=== PATIENT | female | born 2000 | race African-American/Black ===

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

== ENCOUNTER 2022-10-10 13:02 | Emergency (ER) | payer OTHER ==
--- OUTSIDE RECORDS SUMMARY | 2022-10-10 13:07 | XMS REPORT | Continuity of Care Document ---
:2000 Author Organization [facility] t Address [address] [place] [address] Care Team Providers Name Role Phone ARELIS GODDARD Primary Care Physician Unavailable RADIOLOGY Attending Clinician Unavailable Radiology Attending Clinician Unavailable CHRISTINE HUI Attending Clinician Unavailable Christine Villarreal Attending Clinician UNKNOWN, ATTENDING Attending Clinician Unavailable Arelis Goddard Attending Clinician Nurse, Adc Pob Immunization Attending Clinician Unavailable Zechariah Vaughn DO Attending Clinician ZECHARIAH VAUGHN Attending Clinician Unavailable MONDAYDIANA M.D. Attending Clinician Unavailable MONDAYDIANA Attending Clinician Unavailable MondayDiana Attending Clinician MIGUEL GARCIA Attending Clinician Unavailable CLINTON CARDONA Admitting Clinician Unavailable CHRISTINE HUI Admitting Clinician Unavailable MONDAYDIANA Admitting Clinician Unavailable MondayDiana Admitting Clinician Payers Payer Name Policy Type Policy Number Effective Date Expiration Date Aaron HAMMER II [id number] 2020 00:00:00 [place] [id number] 2022 00:00:00 [facility] [id number] 2017 MEDICAID 00:00:00 Problems Condition Condition Condition Status Onset Resolution Last Treating Co mments Source Name Details Category Date Date Treatment Clinician Date CONVULSION CONVULSIO Diagnosis Active 2021-01-28 Shakira N Active 12-03 05:07:00 l 12/03/2020 00:00: Ned pittman [address] No known No known Disease Unive rs active active ity of problems problems [facility] Convulsion Convulsion Problem Active U T s, s, Physici unspecifie unspecifie an s d d convulsion convulsion type type 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, seizures, not not intractabl intractabl e, without e, without status status epilepticu epilepticu s s 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 an s ic seizure ic seizure Allergies, Adverse Reactions, Alerts Allergy Allergy Status Severity Reaction(s) Onset Inactive Treating Comm ents Source Name Type Date Date Clinician NO KNOWN Drug Active Univers ALLERGIE Class ity of S [facility] Family History Family Member Diagnosis Comments Start Date Stop Date Source Grandmother Family history of [facility] hypertension Grandmother Family history of [facility] cerebrovascular accident (CVA) Social History Social Habit Start Date Stop Date Quantity Comments Source Exposure to Not sure University of SARS-CoV-2 [facility] (event) [place] Alcohol intake 2021-04-29 2021-04-29 [facility] 00:00:00 00:00:00 non-drinker of [facility] alcohol (finding) [place] Tobacco use and 2019-01-04 2019-01-04 Smokeless tobacco Un iversity of exposure 00:00:00 00:00:00 non-user [facility] Sex Assigned At 2000 2002 Universit y of 00:00:00 00:00:00 [facility] Smoking Status Start Date Stop Date Source Social History [facility] Medications Ordered Filled Start Stop Current Ordering Indication Dosage Frequency Signature Comments Components Source Medication Medication Date Date Medication? Clinician (SIG) Name Name benzonatate 2020-09 Yes [id number] 100mg Take 1 Univers 100 mg 1-30 capsule by ity of capsule 00:00: mouth 3 00 (three) Medical times Branch daily as needed for Cough. benzonatate 2020-09 Yes [id number] 100mg Take 1 Univers 100 mg 1-30 capsule by ity of capsule 00:00: mouth 3 00 (three) Medical times Branch daily as needed for Cough. benzonatate 2020-09 Yes [id number] 100mg Take 1 Univers 100 mg 1-30 capsule by ity of capsule 00:00: mouth 3 (three) Medical times Branch daily as needed for Cough. Saline No Notes: [facility] Flush 0.9% 5-02 Same as: l 02:00: BD Roshan 00 Posiflush Sterile Saline No Notes: [facility] Flush 0.9% 5-02 Same as: l 02:00: BD Roshan 00 Posiflush Sterile Saline No Notes: [facility] Flush 0.9% 5-02 Same as: l 02:00: BD [place] 00 Posiflush Sterile Saline No Notes: Memoria Flush 0.9% 5-01 Same as: l 15:58: BD [place] 00 Posiflush Sterile Saline No Notes: [facility]oria Flush 0.9% 5-01 Same as: l 15:58: BD [place] 00 Posiflush Sterile Saline No Notes: Memoria Flush 0.9% 5-01 Same as: l 15:58: BD Roshan 00 Posiflush Sterile medroxyPROG Yes GIVE 1 ML U nivers ESTERone 3-26 IM IN LEFT ity o f 150 mg/mL 00:00[place] syringe 00 ARM- BRING Medica l TO [facility] Branch medroxyPROG Yes GIVE 1 ML U nivers ESTERone 3-26 IM IN LEFT ity o f 150 mg/mL 00:00: [place] syringe 00 ARM- BRING Medica l TO [facility] Branch medroxyPROG Yes GIVE 1 ML U nivers ESTERone 3-26 IM IN LEFT ity o f 150 mg/mL 00:00: [place] syringe 00 ARM- BRING Medica l TO [facility] Branch medroxyPROG 2019-0 Yes GIVE 1 ML U nivers ESTERone 3-26 IM IN LEFT ity o f 150 mg/mL 00:00: [place] syringe 00 ARM- BRING Medica l TO CLINIC Branch medroxyPROG 2019-0 Yes GIVE 1 ML U nivers ESTERone 3-26 IM IN LEFT ity o f 150 mg/mL 00:00: [place] syringe 00 ARM- BRING Medica l TO [facility] Branch levETIRAcet levETIRAcet Yes HOSPITAL AIDE 1 Q0.5D TAKE 1 UT am 500 MG am 500 MG TABLET Phy sici Oral Tablet Oral Tablet TWICE ans DAILY DIRECTED Immunizations Ordered Filled Immunization Date Status Comments [facility] e Immunization Name Name SARS-COV-2 COVID-19 2021-05-05 Completed Unive rsity of PFIZER VACCINE 00:00:00 [facility] SARS-COV-2 COVID-19 2021-05-05 Completed Unive rsity of PFIZER VACCINE 00:00:00 [facility] SARS-COV-2 COVID-19 2021-05-05 Completed Unive rsity of PFIZER VACCINE 00:00:00 [facility] SARS-COV-2 COVID-19 2021-05-05 Completed Unive rsity of PFIZER VACCINE 00:00:00 [facility] SARS-COV-2 COVID-19 2021-05-05 Completed Unive rsity of PFIZER VACCINE 00:00:00 [facility] SARS-COV-2 COVID-19 2021-04-08 Completed Unive rsity of PFIZER VACCINE 00:00:00 [facility] SARS-COV-2 COVID-19 2021-04-08 Completed Unive rsity of PFIZER VACCINE 00:00:00 [facility] SARS-COV-2 COVID-19 2021-04-08 Completed Unive rsity of PFIZER VACCINE 00:00:00 [facility] SARS-COV-2 COVID-19 2021-04-08 Completed Unive rsity of PFIZER VACCINE 00:00:00 [facility] SARS-COV-2 COVID-19 2021-04-08 Completed Unive rsity of PFIZER VACCINE 00:00:00 [facility] Vital Signs Vital Name Observation Time Observation Value Comments Source Systolic blood 2021-08-10 137 mm[Hg] University of pressure 19:22:00 [facility] Diastolic blood 2021-08-10 91 mm[Hg] University o f pressure 19:22:00 [facility] Heart rate 2021-08-10 81 /min [facility] 19:22:00 [facility] Body temperature 2021-08-10 36.5 Agnieszka [facility] 19:22:00 [facility] Respiratory rate 2021-08-10 20 /min [facility] 19:22:00 [facility] Body weight 2021-08-10 69.854 kg [facility] 19:22:00 [facility] Oxygen saturation 2021-08-10 100 /min [facility] in Arterial blood 19:22:00 [facility] by Pulse oximetry Branch Temperature Oral 2021-01-10 98.9 F [facility] rmann (F) 14:00:00 Heart Rate 2021-01-10 [facility] 14:00:00 Respitory Rate 2021-01-10 [facility] 14:00:00 Systolic (mm Hg) 2021-01-10 [facility] rmann 14:00:00 Diastolic (mm Hg) 2021-01-10 [facility] ermann 14:00:00 Temperature Oral 2021-01-10 98.9 F [facility] rmann (F) 01:00:00 Heart Rate 2021-01-10 [facility] n 01:00:00 Respitory Rate 2021-01-10 [facility] 01:00:00 Systolic (mm Hg) 2021-01-10 [facility] rmann 01:00:00 Diastolic (mm Hg) 2021-01-10 [facility] ermann 01:00:00 Temperature Oral 2021-01-09 99 F [facility] rmann (F) 19:00:00 Heart Rate 2021-01-09 [facility] 19:00:00 Respitory Rate 2021-01-09 [facility] ro[facility]io 19:00:00 Systolic (mm Hg) 2021-01-09 [facility] rmann 19:00:00 Diastolic (mm Hg) 2021-01-09 [facility] ermann 19:00:00 Height 2021-01-09 162.56 cm [facility] n 14:55:00 Weight 2021-01-09 [facility] n 14:55:00 BMI Calculated 2021-01-09 [facility]io 14:55:00 Body temperature 2020-11-18 97.3 [degF] Method: [facility] 09:44:00 Temporal Heart Rate 2020-11-18 92 /min [facility] 09:44:00 Systolic blood 2020-11-18 119 mm[Hg] Location: [facility] Physicia ns pressure 09:44:00 Position: Sitting Diastolic blood 2020-11-18 80 mm[Hg] Location: [facility] [place] Physici ans pressure 09:44:00 Position: Sitting Body height 2020-11-18 65 [in_us] [facility] 09:44:00 Weight 2020-11-18 156.5 [lb_av] [facility] 09:44:00 Body mass index 2020-11-18 26.04 kg/m2 [facility] (BMI) [Ratio] 09:44:00 Procedures Procedure Date / Time Performing Clinician Source Performed US RETROPERITONEAL 2022-07-08 16:40:50 Clinton Cardona [facility] Medical Branch NOTICE OF PRIVACY 2022-07-08 16:09:10 Doctor Emi, [facility] PRACTICES [place] [facility] CONSENT/REFUSAL FOR 2022-07-08 16:08:48 Doctor Emi, [facility] DIAGNOSIS AND TREATMENT [place] [facility] ASSIGNMENT OF BENEFITS 2022-07-08 16:08:32 [facility] [place] [facility] HEAD WO CONTRAST 2022-06-13 16:04:41 Clinton Cardona [facility] Medical Branch XR CHEST 1 VW 2021-08-10 19:51:00 Christine Hui [facility] o [facility] Medical Branch CONSENT/REFUSAL FOR 2021-08-10 19:12:50 Doctor Gil[facility]stam[facility] DIAGNOSIS AND TREATMENT [place] [facility] SARS-COV-2 COVID-19 2021-05-05 22:34:51 Doctor Unassigned, [facility] VACCINE,0.3ML,IM (PFIZER) [place] [facility] [UTP] Neuro EMU 2020-12-24 00:00:00 [facility] [[facility]P] Neuro EMU 2020-11-19 00:00:00 [facility] History of Tonsillectomy [facility] Plan of Care Planned Activity Planned Date Details Comments Source Diagnostic Test Pending 2020-12-24 00:00:00 [UTP] Neuro EMU [facility] [code = [UTP] Neuro EMU] Diagnostic Test Pending 2020-12-24 00:00:00 [UTP] Neuro EMU [facility] [code = [UTP] Neuro EMU] Diagnostic Test Pending 2020-12-24 00:00:00 [UTP] Neuro EMU [facility] [code = [UTP] Neuro EMU] Diagnostic Test Pending 2020-12-24 00:00:00 [UTP] Neuro EMU [facility] [code = [UTP] Neuro EMU] Diagnostic Test Pending 2020-11-19 00:00:00 [UTP] Neuro EMU [facility] [code = [UTP] Neuro EMU] Diagnostic Test Pending 2020-11-19 00:00:00 [UTP] Neuro EMU [facility] [code = [UTP] Neuro EMU] Diagnostic Test Pending 2020-11-19 00:00:00 [UTP] Neuro EMU [facility] [code = [UTP] Neuro EMU] Diagnostic Test Pending 2020-11-19 00:00:00 [UTP] Neuro EMU [facility] [code = [UTP] Neuro EMU] Diagnostic Test Pending 2020-11-19 00:00:00 [UTP] Neuro EMU [facility] [code = [UTP] Neuro EMU] Diagnostic Test Pending 2020-11-19 00:00:00 [UTP] Neuro EMU [facility] [code = [UTP] Neuro EMU] Encounters Start End Encounter Admission Attending Care Care Encounter Source Date/Time Date/Time Type Type Clinicians Facility Department ID 2021-07-12 Emergency [facility] [id number] Univers 16:50:45 ity of [facility] 2022-07-08 2022-07-08 Outpatient R RADIOLOGY [facility] [id number] Univers 11:03:42 23:59:00 ity of [facility] 2022-07-08 2022-07-08 Hospital Radiology [facility] [id number] Univers 11:03:42 23:59:00 Encounter [place] [id number] ity [place] [id number] [place] [facility] [id number] [facility] 806 Branch 2022-06-13 2022-06-13 Outpatient R RADIOLOGY [facility] [id number] Univers 10:40:55 23:59:00 ity of [facility] 2022-06-13 2022-06-13 Hospital Radiology [facility] [id number] Univers 10:40:55 23:59:00 Encounter [place] [id number] ity [facility] [id number] [id number] [facility] 801 Branch 2021-08-10 2021-08-10 Emergency X EZ [facility] ERT [id number] Univers 13:23:00 15:46:00 [facility] 2021-08-10 2021-08-10 [facility] [id number] Univers 13:23:00 15:46:00 Christine S SAUNDR[place] [id number] i ty [facility] [id number] [id number] [facility] 084 Branch 2021-05-06 2021-05-06 Outpatient Micah HANSON [facility] [id number] Univers 20:40:00 20:40:00 ATTENDING ity [facility] 2021-05-06 2021-05-06 Telephone ARNALDO Goddard [id number] Univers 00:00:00 00:00:00 Arelis ZHANG [id number] ity of [facility] [id number] [place] as [id number] [facility] 019 Branch 2021-05-05 2021-05-05 Imm/Inj Nurse, Adc Pob Immunization [facility] [id number] Univers 17:40:00 17:50:00 Visit Zechariah Vaughn [id number] .10 ity [facility] [id number] [id number] [place] dical count includes the [facility] 421 [facility] 2021-05-05 2021-05-05 Outpatient Micah VAUGHN [facility] [id number] Univers 17:40:00 17:40:00 ZECHARIAH flowers [facility] 2021-04-29 2021-04-29 [facility] [id number] Univers 17:50:00 17:50:00 [facility] 2021-04-29 2021-04-29 Outpatient [facility] [id number] Univers 11:30:00 11:30:00 [facility] [place] 2021-04-28 2021-04-28 [facility] [id number] Univers 17:00:00 17:00:00 [facility] 2021-04-08 2021-04-08 [facility]patient [facility] [id number] Univers 14:30:00 14:30:00 [facility] 2021-04-07 2021-04-07 Outpatient [facility] [id number] Univers 17:50:00 17:50:00 [facility] [place] 2021-01-13 2021-01-[facility] [place] [id number] [place] 16:30:00 16:30:00 t; DIANA [place] [facility] KIMBERLY, [facility]. [facility] 2021-01-09 2021-01-10 Inpatient [facility] [id number] Memoria 15:02:00 21:20:[address] 2021-01-09 2021-01-10 Inpatient [facility] [id number] Memoria 15:02:00 21:20:[address] 2021-01-09 2021-01-10 Inpatient MONDAY, [facility] [id number] [facility] 10:02:00 16:20:00 DIANA 2021-01-09 2021-01-10 Outpatient Monday, [facility] [id number] 10:02:00 16:20:00 [place] 2021-01-09 2021-01-10 Outpatient Monday, [facility] [id number] 10:02:00 16:20:00 Diana Fela 2020-11-18 2020-11-18 [facility] - [id number] [place] 09:30:00 09:30:00 t; DIANA COTTON [place] [facility] KIMBERLY, M.D. Medical azael [facility] 2020-08-23 2020-08-23 [facility] R JOSE [facility] [id number] Univers 15:40:00 15:40:00 MIGUEL flowers [facility] Results Test Description Test Time Test Comments Results Result Comments Source URINE CHEM 2021-01-09 22:15:00 Test Item Value Reference Range Interpretation Comme nts U Preg (test code = U Preg) Negative (01/09/21 5:15 PM) [facility] [id number] 22:15:00 Test Item Value Reference Range Interpretation Comments U Preg (test code = U Negative (01/09/21 5:15 Preg) PM) [facility] [id number] 22:15:00 Test Item Value Reference Range Interpretation Comments U Preg (test code = U Negative (01/09/21 5:15 Preg) PM) [id number] 20:25:00 Test Item Value Reference Range Interpretation Comments Hgb (test code = Hgb) 14.7 12.0-16.0 [facility]uyzslqXXWHFWJQRT6091-98-64 20:25:00 Test Item Value Reference Range Interpretation Comments Hct (test code = Hct) 43.5 36.0-48.0 [id number] 20:25:00 Test Item Value Reference Range Interpretation Comments MCV (test code = MCV) 95.9 80.0-98.0 [facility] [place] [id number] 20:25:00 Test Item Value Reference Range Interpretation Comments MCH (test code = MCH) 32.4 pg 27.0-31.0 [id number] 20:25:00 Test Item Value Reference Range Interpretation Comments MCHC (test code = MCHC) 33.8 32.0-36.0 [facility] [id number] 20:25:00 Test Item Value Reference Range Interpretation Comments RDW (test code = RDW) 12.6 11.5-14.5 [facility] [id number] 20:25:00 Test Item Value Reference Range Interpretation Comments Platelet (test code = Platelet) 206 133-450 [facility]KSXIQGIFKL2768-59-00 20:25:00 Test Item Value Reference Range Interpretation Comments MPV (test code = MPV) 9.1 7.4-10.4 [place] [id number] 20:25:00 Test Item Value Reference Range Interpretation Comments Bili Direct (test code no gt See_Comment [Aut omated message] The = Bili Direct) system which generated this result tra nsmitted reference range : <=0.3. The reference r savage was not used to int erpret this result as jesús l/abnormal. [place] [id number] 20:25:00 Test Item Value Reference Range Interpretation Comments Glucose Lvl (test code = Glucose Lvl) 83 70-99 [place] [id number] 20:25:00 Test Item Value Reference Range Interpretation Comments BUN (test code = BUN) 13 7-22 [place] [id number] 20:25:00 Test Item Value Reference Range Interpretation Comments Creatinine Lvl (test code = Creatinine 1.02 0.50-1.40 Lvl) [place] [id number] 20:25:00 Test Item Value Reference Range Interpretation Comments Sodium Lvl (test code = Sodium Lvl) 139 135-145 [place] [id number] 20:25:00 Test Item Value Reference Range Interpretation Comments Potassium Lvl (test code = Potassium 4.0 3.5-5.1 Lvl) [place] [id number] 20:25:00 Test Item Value Reference Range Interpretation Comments Chloride Lvl (test code = Chloride Lvl) 110 95-109 [place] [id number] 20:25:00 Test Item Value Reference Range Interpretation Comments CO2 (test code = CO2) 24 24-32 [place] [id number] 20:25:00 Test Item Value Reference Range Interpretation Comments Calcium Lvl (test code = Calcium Lvl) 9.0 8.5-10.5 [place] [id number] 20:25:00 Test Item Value Reference Range Interpretation Comments Total Protein (test code = Total 7.7 6.4-8.4 Protein) [place] [id number] 20:25:00 Test Item Value Reference Range Interpretation Comments Albumin Lvl (test code = Albumin Lvl) 4.1 3.5-5.0 [facility] [id number] 20:25:00 Test Item Value Reference Range Interpretation Comments ALT (test code = ALT) 18 See_Comment [Auto mated message] The system which ge nerated this result transmit kiara reference range : <=65. The reference range was not used to interpr et this result as jesús l/abnormal. [facility] [id number] 20:25:00 Test Item Value Reference Range Interpretation Comments AST (test code = AST) 12 See_Comment [Auto mated message] The system which ge nerated this result transmit kiara reference range : <=37. The reference range was not used to interpr et this result as jesús l/abnormal. [facility] [id number] 20:25:00 Test Item Value Reference Range Interpretation Comments Alk Phos (test code = Alk Phos) 106 43-86 [facility] [id number] 20:25:00 Test Item Value Reference Range Interpretation Comments Bili Total (test code = Bili Total) 0.3 0.2-1.3 [facility] [id number] 20:25:00 Test Item Value Reference Range Interpretation Comments AGAP (test code = AGAP) 9.0 10.0-20.0 [facility] [id number] 20:25:00 Test Item Value Reference Range Interpretation Comments B/C Ratio (test code = B/C Ratio) 13 1 6-25 [facility] [id number] 20:25:00 Test Item Value Reference Range Interpretation Comments Globulin (test code = Globulin) 3.6 2.7-4.2 [facility] [id number] 20:25:00 Test Item Value Reference Range Interpretation Comments A/G Ratio (test code = A/G Ratio) 1.1 1 0.7-1.6 [facility] [id number] 20:25:00 Test Item Value Reference Range Interpretation Comments eGFR (test code = eGFR) 80 [facility]pp[facility]utkMLQOTLUHLU0528-51-42 20:25:00 Test Item Value Reference Range Interpretation Comments Segs (test code = Segs) 47.7 45.0-75.0 [place] [id number] 20:25:00 Test Item Value Reference Range Interpretation Comments Lymphocytes (test code = Lymphocytes) 41.3 20.0-40.0 [place] [id number] 20:25:00 Test Item Value Reference Range Interpretation Comments Monocytes (test code = Monocytes) 9.0 2.0-12.0 [place] [id number] 20:25:00 Test Item Value Reference Range Interpretation Comments Eosinophils (test code = 1.5 See_Comment [A utomated message] The Eosinophils) system which ge nerated this result tra nsmitted reference range : <=4.0. The reference r savage was not used to int erpret this result as normal/abnormal . [place] [id number] 20:25:00 Test Item Value Reference Range Interpretation Comments Basophils (test code = 0.5 See_Comment [Aut omated message] The Basophils) system which ge nerated this result tra nsmitted reference range : <=1.0. The reference r savage was not used to int erpret this result as normal/abnormal . [id number] 20:25:00 Test Item Value Reference Range Interpretation Comments Neutrophils # (test code = Neutrophils 3.3 1.5-8.1 #) [place] [id number] 20:25:00 Test Item Value Reference Range Interpretation Comments Lymphocytes # (test code = Lymphocytes 2.9 1.0-5.5 #) [place] [id number] 20:25:00 Test Item Value Reference Range Interpretation Comments Monocytes # (test code 0.6 See_Comment [Aut omated message] The = Monocytes #) system which generated this result tra nsmitted reference range : <=0.8. The reference r savage was not used to int erpret this result as normal/abnormal . [place] [id number] 20:25:00 Test Item Value Reference Range Interpretation Comments Eosinophils # (test code 0.1 See_Comment [A utomated message] The = Eosinophils #) system whic h generated this result tra nsmitted reference range : <=0.5. The reference r savage was not used to int erpret this result as normal/abnormal . [place] [id number] 20:25:00 Test Item Value Reference Range Interpretation Comments WBC (test code = WBC) 6.9 3.7-10.4 [place] [id number] 20:25:00 Test Item Value Reference Range Interpretation Comments RBC (test code = RBC) 4.54 4.20-5.40 [place] [id number] 20:25:00 Test Item Value Reference Range Interpretation Comments Hgb (test code = Hgb) 14.7 12.0-16.0 [place] [id number] 20:25:00 Test Item Value Reference Range Interpretation Comments BUN (test code = BUN) 13 7-22 [place] 889341-05-01 20:25:00 Test Item Value Reference Range Interpretation Comments Creatinine Lvl (test code = Creatinine 1.02 0.50-1.40 Lvl) [place] 889341-05-01 20:25:00 Test Item Value Reference Range Interpretation Comments Sodium Lvl (test code = Sodium Lvl) 139 135-145 [place] 889341-05-01 20:25:00 Test Item Value Reference Range Interpretation Comments Potassium Lvl (test code = Potassium 4.0 3.5-5.1 Lvl) [place] 889341-05-01 20:25:00 Test Item Value Reference Range Interpretation Comments Chloride Lvl (test code = Chloride Lvl) 110 95-109 [place] 889341-05-01 20:25:00 Test Item Value Reference Range Interpretation Comments CO2 (test code = CO2) 24 24-32 [place] 889341-05-01 20:25:00 Test Item Value Reference Range Interpretation Comments Calcium Lvl (test code = Calcium Lvl) 9.0 8.5-10.5 [place] 889341-05-01 20:25:00 Test Item Value Reference Range Interpretation Comments Total Protein (test code = Total 7.7 6.4-8.4 Protein) [place] 889341-05-01 20:25:00 Test Item Value Reference Range Interpretation Comments Albumin Lvl (test code = Albumin Lvl) 4.1 3.5-5.0 [place] 889341-05-01 20:25:00 Test Item Value Reference Range Interpretation Comments ALT (test code = ALT) 18 See_Comment [Auto mated message] The system which ge nerated this result transmit kiara reference range : <=65. The reference range was not used to interpr et this result as jesús l/abnormal. [facility] iSECUREtrac [id number] 20:25:00 Test Item Value Reference Range Interpretation Comments AST (test code = AST) 12 See_Comment [Auto mated message] The system which ge nerated this result transmit kiara reference range : <=37. The reference range was not used to interpr et this result as jesús l/abnormal. [facility] [id number] 20:25:00 Test Item Value Reference Range Interpretation Comments Alk Phos (test code = Alk Phos) 106 43-86 [facility] [id number] 20:25:00 Test Item Value Reference Range Interpretation Comments Bili Total (test code = Bili Total) 0.3 0.2-1.3 [facility] [id number] 20:25:00 Test Item Value Reference Range Interpretation Comments AGAP (test code = AGAP) 9.0 10.0-20.0 [facility] [id number] 20:25:00 Test Item Value Reference Range Interpretation Comments B/C Ratio (test code = B/C Ratio) 13 1 6-25 [facility] [id number] 20:25:00 Test Item Value Reference Range Interpretation Comments Globulin (test code = Globulin) 3.6 2.7-4.2 [facility] [id number] 20:25:00 Test Item Value Reference Range Interpretation Comments A/G Ratio (test code = A/G Ratio) 1.1 1 0.7-1.6 [facility] [id number] 20:25:00 Test Item Value Reference Range Interpretation Comments eGFR (test code = eGFR) 80 [id number] 20:25:00 Test Item Value Reference Range Interpretation Comments Segs (test code = Segs) 47.7 45.0-75.0 [facility]CipaytkTHKPELFJGL0421-02-10 20:25:00 Test Item Value Reference Range Interpretation Comments Lymphocytes (test code = Lymphocytes) 41.3 20.0-40.0 [facility] [id number] 20:25:00 Test Item Value Reference Range Interpretation Comments Monocytes (test code = Monocytes) 9.0 2.0-12.0 [place] 262111-05-01 20:25:00 Test Item Value Reference Range Interpretation Comments Eosinophils (test code = 1.5 See_Comment [A utomated message] The Eosinophils) system which ge nerated this result tra nsmitted reference range : <=4.0. The reference r savage was not used to int erpret this result as normal/abnormal . [place] 262111-05-01 20:25:00 Test Item Value Reference Range Interpretation Comments Basophils (test code = 0.5 See_Comment [Aut omated message] The Basophils) system which ge nerated this result tra nsmitted reference range : <=1.0. The reference r savage was not used to int erpret this result as normal/abnormal . [place] 262111-05-01 20:25:00 Test Item Value Reference Range Interpretation Comments Neutrophils # (test code = Neutrophils 3.3 1.5-8.1 #) [place] 262111-05-01 20:25:00 Test Item Value Reference Range Interpretation Comments Lymphocytes # (test code = Lymphocytes 2.9 1.0-5.5 #) [place] 262111-05-01 20:25:00 Test Item Value Reference Range Interpretation Comments Monocytes # (test code 0.6 See_Comment [Aut omated message] The = Monocytes #) system which generated this result tra nsmitted reference range : <=0.8. The reference r savage was not used to int erpret this result as normal/abnormal . [place] [address]-05-01 20:25:00 Test Item Value Reference Range Interpretation Comments Eosinophils # (test code 0.1 See_Comment [A utomated message] The = Eosinophils #) system whic h generated this result tra nsmitted reference range : <=0.5. The reference r savage was not used to int erpret this result as normal/abnormal . [place] 262111-05-01 20:25:00 Test Item Value Reference Range Interpretation Comments WBC (test code = WBC) 6.9 3.7-10.4 [place] 262111-05-01 20:25:00 Test Item Value Reference Range Interpretation Comments RBC (test code = RBC) 4.54 4.20-5.40 [place] [address]-05-01 20:25:00 Test Item Value Reference Range Interpretation Comments Hgb (test code = Hgb) 14.7 12.0-16.0 [place] [address]-05-01 20:25:00 Test Item Value Reference Range Interpretation Comments Hct (test code = Hct) 43.5 36.0-48.0 [place] [address]-05-01 20:25:00 Test Item Value Reference Range Interpretation Comments MCV (test code = MCV) 95.9 80.0-98.0 [place] [address]-05-01 20:25:00 Test Item Value Reference Range Interpretation Comments MCH (test code = MCH) 32.4 pg 27.0-31.0 [place] [address]-05-01 20:25:00 Test Item Value Reference Range Interpretation Comments MCHC (test code = MCHC) 33.8 32.0-36.0 [place] [address]-05-01 20:25:00 Test Item Value Reference Range Interpretation Comments RDW (test code = RDW) 12.6 11.5-14.5 [place] [address]-05-01 20:25:00 Test Item Value Reference Range Interpretation Comments Platelet (test code = Platelet) 206 133-450 [place] 262111-05-01 20:25:00 Test Item Value Reference Range Interpretation Comments MPV (test code = MPV) 9.1 7.4-10.4 [place] 889341-05-01 20:25:00 Test Item Value Reference Range Interpretation Comments Bili Direct (test code no gt See_Comment [Aut omated message] The = Bili Direct) system which generated this result tra nsmitted reference range : <=0.3. The reference r savage was not used to int erpret this result as jesús l/abnormal. [facility]2021-05-01 20:25:00 Test Item Value Reference Range Interpretation Comments Glucose Lvl (test code = Glucose Lvl) 83 70-99 [place] [address]-05-01 20:25:00 Test Item Value Reference Range Interpretation Comments Hct (test code = Hct) 43.5 36.0-48.0 [place] 262111-05-01 20:25:00 Test Item Value Reference Range Interpretation Comments MCV (test code = MCV) 95.9 80.0-98.0 [place] 262111-05-01 20:25:00 Test Item Value Reference Range Interpretation Comments MCH (test code = MCH) 32.4 pg 27.0-31.0 [place] 262111-05-01 20:25:00 Test Item Value Reference Range Interpretation Comments MCHC (test code = MCHC) 33.8 32.0-36.0 [place] [address]-05-01 20:25:00 Test Item Value Reference Range Interpretation Comments RDW (test code = RDW) 12.6 11.5-14.5 [place] 262111-05-01 20:25:00 Test Item Value Reference Range Interpretation Comments Platelet (test code = Platelet) 206 133-450 [place] 262111-05-01 20:25:00 Test Item Value Reference Range Interpretation Comments MPV (test code = MPV) 9.1 7.4-10.4 [place] 889341-05-01 20:25:00 Test Item Value Reference Range Interpretation Comments Bili Direct (test code no gt See_Comment [Aut omated message] The = Bili Direct) system which generated this result tra nsmitted reference range : <=0.3. The reference r savage was not used to int erpret this result as jesús l/abnormal. [place] 889341-05-01 20:25:00 Test Item Value Reference Range Interpretation Comments Glucose Lvl (test code = Glucose Lvl) 83 70-99 [place] 889341-05-01 20:25:00 Test Item Value Reference Range Interpretation Comments BUN (test code = BUN) 13 7-22 [place] 889341-05-01 20:25:00 Test Item Value Reference Range Interpretation Comments Creatinine Lvl (test code = Creatinine 1.02 0.50-1.40 Lvl) [place] 889341-05-01 20:25:00 Test Item Value Reference Range Interpretation Comments Sodium Lvl (test code = Sodium Lvl) 139 135-145 [place] 889341-05-01 20:25:00 Test Item Value Reference Range Interpretation Comments Potassium Lvl (test code = Potassium 4.0 3.5-5.1 Lvl) [place] 889341-05-01 20:25:00 Test Item Value Reference Range Interpretation Comments Chloride Lvl (test code = Chloride Lvl) 110 95-109 [place] 889341-05-01 20:25:00 Test Item Value Reference Range Interpretation Comments CO2 (test code = CO2) 24 24-32 [place] 889341-05-01 20:25:00 Test Item Value Reference Range Interpretation Comments Calcium Lvl (test code = Calcium Lvl) 9.0 8.5-10.5 [place] 889341-05-01 20:25:00 Test Item Value Reference Range Interpretation Comments Total Protein (test code = Total 7.7 6.4-8.4 Protein) [place] 889341-05-01 20:25:00 Test Item Value Reference Range Interpretation Comments Albumin Lvl (test code = Albumin Lvl) 4.1 3.5-5.0 [place] 889341-05-01 20:25:00 Test Item Value Reference Range Interpretation Comments ALT (test code = ALT) 18 See_Comment [Auto mated message] The system which ge nerated this result transmit kiara reference range : <=65. The reference range was not used to interpr et this result as jesús l/abnormal. [place] 889341-05-01 20:25:00 Test Item Value Reference Range Interpretation Comments AST (test code = AST) 12 See_Comment [Auto mated message] The system which ge nerated this result transmit kiara reference range : <=37. The reference range was not used to interpr et this result as jesús l/abnormal. [place] 889341-05-01 20:25:00 Test Item Value Reference Range Interpretation Comments Alk Phos (test code = Alk Phos) 106 43-86 [place] 889341-05-01 20:25:00 Test Item Value Reference Range Interpretation Comments Bili Total (test code = Bili Total) 0.3 0.2-1.3 [place] 889341-05-01 20:25:00 Test Item Value Reference Range Interpretation Comments AGAP (test code = AGAP) 9.0 10.0-20.0 [address]05-01 20:25:00 Test Item Value Reference Range Interpretation Comments B/C Ratio (test code = B/C Ratio) 13 1 6-[address]05-01 20:25:00 Test Item Value Reference Range Interpretation Comments Globulin (test code = Globulin) 3.6 2.7-4.2 [place] 9[address]-05-01 20:25:00 Test Item Value Reference Range Interpretation Comments A/G Ratio (test code = A/G Ratio) 1.1 1 0.7-1.[address]05-01 20:25:00 Test Item Value Reference Range Interpretation Comments eGFR (test code = eGFR) 80 [place] 262111-05-01 20:25:00 Test Item Value Reference Range Interpretation Comments Segs (test code = Segs) 47.7 45.0-75.0 [place] 262111-05-01 20:25:00 Test Item Value Reference Range Interpretation Comments Lymphocytes (test code = Lymphocytes) 41.3 20.0-40.0 [place] [address]-05-01 20:25:00 Test Item Value Reference Range Interpretation Comments Monocytes (test code = Monocytes) 9.0 2.0-12.0 [place] [address]-05-01 20:25:00 Test Item Value Reference Range Interpretation Comments Eosinophils (test code = 1.5 See_Comment [A utomated message] The Eosinophils) system which ge nerated this result tra nsmitted reference range : <=4.0. The reference r savage was not used to int erpret this result as normal/abnormal . [place] [address]-05-01 20:25:00 Test Item Value Reference Range Interpretation Comments Basophils (test code = 0.5 See_Comment [Aut omated message] The Basophils) system which ge nerated this result tra nsmitted reference range : <=1.0. The reference r savage was not used to int erpret this result as normal/abnormal . [place] [address]-05-01 20:25:00 Test Item Value Reference Range Interpretation Comments Neutrophils # (test code = Neutrophils 3.3 1.5-8.1 #) [place] 262111-05-01 20:25:00 Test Item Value Reference Range Interpretation Comments Lymphocytes # (test code = Lymphocytes 2.9 1.0-5.5 #) [place] 262111-05-01 20:25:00 Test Item Value Reference Range Interpretation Comments Monocytes # (test code 0.6 See_Comment [Aut omated message] The = Monocytes #) system which generated this result tra nsmitted reference range : <=0.8. The reference r savage was not used to int erpret this result as normal/abnormal . [place] [address]-05-01 20:25:00 Test Item Value Reference Range Interpretation Comments Eosinophils # (test code 0.1 See_Comment [A utomated message] The = Eosinophils #) system whic h generated this result tra nsmitted reference range : <=0.5. The reference r savage was not used to int erpret this result as normal/abnormal . [place] 262111-05-01 20:25:00 Test Item Value Reference Range Interpretation Comments WBC (test code = WBC) 6.9 3.7-10.4 [place] [address]-05-01 20:25:00 Test Item Value Reference Range Interpretation Comments RBC (test code = RBC) 4.54 4.20-5.40 [place] [address]-05-01 15:59:00 Test Item Value Reference Range Interpretation Comments Coronavirus (COVID-19) Not Detected (01/09/21 CHRISTI (test code = 10:59 AM) Coronavirus (COVID-19) CHRISTI) [place] 349541-05-01 15:59:00 Test Item Value Reference Range Interpretation Comments Coronavirus (COVID-19) Not Detected (01/09/21 CHRISTI (test code = 10:59 AM) Coronavirus (COVID-19) CHRISTI) [place] [address]-05-01 15:59:00 Test Item Value Reference Range Interpretation Comments Coronavirus (COVID-19) Not Detected (01/09/21 CHIRSTI (test code = 10:59 AM) Coronavirus (COVID-19) CHRISTI) [facility]
[2022-10-10 15:26] LABS: Absolute Lymphocytes (CBC) 1.8 K/uL (0.7-4.9); Hematocrit 47.3 % (36.0-45.0); Lymphocytes % 23.7 % (15.3-44.8); MCV 96.8 fL (80-100); MPV 8.7 fL (7.6-11.3); RBC Red Blood Cell Count 4.88 M/uL (3.86-4.86)
[2022-10-10 15:49] LABS: BUN Blood Urea Nitrogen 11 mg/dL (7-18); Bicarbonate 25 mmol/L (21-32); Glomerular Filtration Rate 80 ml/min (=/>90); Glucose Level 110 mg/dL (74-106); Potassium 4.4 mmol/L (3.5-5.1); Sodium Level 141 mmol/L (136-145)
[2022-10-10 16:10] LABS: HCG, Quantitative < 1 mIU/mL (1-3)
--- NOTE | 2022-10-10 16:20 | ER ---
Nurse's Notes [facility] Name: Jing Gomez Age: 22 yrs Sex: Female : 2000 Arrival Date: 10/10/2022 Time: 13:06 Bed 12 Private MD: Diagnosis: Encounter for test, result negative Presentation: 10/10 13:17 Chief complaint: Patient states: I was on depo but I switched to IUD in my arm a couple jh5 months ago; 2 weeks ago I started bleeding; just spotting but I think I am because I have been having lower belly cramps and back pain. My breast has been leaking, like a discharge. I have taken test at home but theyre negative with maybe a really light second line, i dont know. Coronavirus screen: Vaccine status: Patient reports receiving the 2nd dose of the covid vaccine. Ebola Screen: Patient negative for fever greater than or equal to 101.5 degrees Fahrenheit, and additional compatible Ebola Virus Disease symptoms Patient denies exposure to infectious person. Patient denies travel to an Ebola-affected area in the 21 days before illness onset. Initial Sepsis Screen: Does the patient meet any 2 criteria? No. Patient's initial sepsis screen is negative. Does the patient have a suspected source of infection? No. Patient's initial sepsis screen is negative. Risk Assessment: Do you want to hurt yourself or someone else? Patient reports no desire to harm self or others. Onset of symptoms was September 2022. 13:17 Method Of Arrival: Ambulatory [facility] 13:17 Acuity: SHANKAR 3 jh5 Triage Assessment: 13:20 General: Appears uncomfortable, slender, well groomed, well developed, Behavior is jh5 calm, cooperative, appropriate for age. Pain: Complains of pain in abdomen. Musculoskeletal: Circulation, motion, and sensation intact. 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 - Social history:: Smoking status: Patient denies any tobacco usage or history of. Screenin:09 [facility] ED Fall Risk Assessment (Adult) History of falling in the last 3 months, ap3 including since admission No falls in past 3 months (0 pts). Abuse screen: Denies threats or abuse. Nutritional screening: No deficits noted. Tuberculosis screening: No symptoms or risk factors identified. Assessment: 15:08 General: Appears in no apparent distress. Behavior is calm, cooperative. Pain: Denies ap3 pain. Neuro: Level of Consciousness is awake, alert, obeys commands, Oriented to person, place, time, situation, Moves all extremities. Gait is steady, Speech is normal. Cardiovascular: Patient's skin is warm and dry. Respiratory: Airway is patent Respiratory effort is even, unlabored, Respiratory pattern is regular, symmetrical. : Patient is sexually active. Vital Signs: 13:17 BP 131 / 90; Pulse 93; Resp 18; Temp 97.8; Pulse Ox 100% ; Weight 72.57 kg; Height 5 [facility] ft. 4 in. (162.56 cm); Pain 5/10; 13:17 Body Mass Index 27.46 (72.57 kg, 162.56 cm) [facility] ED Course: 13:06 Patient arrived in ED. as 13:20 Triage completed. [facility] 13:20 Arm band placed on right wrist. [facility] 13:21 Laura Josue FNP is [facility] 13:21 Sunny Ho MD is Attending Physician. [facility] 15:00 Nikole Flores, RAÚL is Primary Nurse. ap3 15:08 Inserted saline lock: 20 gauge in right antecubital area, using aseptic technique. ap3 Blood collected. 15:09 Patient has correct armband on for positive identification. Bed in low position. Call ap3 light in reach. Side rails up X 1. Adult w/ patient. Pulse ox on. NIBP on. Door closed. Noise minimized. 16:29 No provider procedures requiring assistance completed. IV discontinued, intact, ap3 bleeding controlled, No redness/swelling at site. Pressure dressing applied. Administered Medications: No medications were administered Medication: 15:09 VIS not applicable for this client. ap3 Outcome: 16:19 Discharge ordered by . [facility] 16:29 Discharged to home ambulatory. ap3 16:29 Condition: good 16:29 Discharge instructions given to patient, Instructed on discharge instructions, follow up and referral plans. Demonstrated understanding of instructions, follow-up care. 16:43 Patient left the ED. ap3 Signatures: Edda Campos Amanda RN RN ap3 Tabatha Owen RN RN jh5 Laura Josue FNP FNP jh7
--- NOTE | 2022-10-10 16:20 | EDPHYS ---
Physician Documentation [facility] Name: Jing Gomez Age: 22 yrs Sex: Female : 2000 Arrival Date: 10/10/2022 Time: 13:06 Bed 12 Private MD: ED Physician Sunny Ho HPI: 10/10 13:20 This 22 yrs old Black Female presents to ER via Ambulatory with complaints of Pelvic jh7 Pain, Back Pain, Nausea. 13:20 Onset: The symptoms/episode began/occurred 3 day(s) ago. The patient states that she jh7 was recently switched from the Depo shot to Nexplanon. Reports abdominal cramping, n, and mild back pain as of the past 3 days. States that she was already checked for STIs which were negative. She is concerned that she is .. 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 - Social history:: Smoking status: Patient denies any tobacco usage or history of. ROS: 13:20 Constitutional: Negative for fever, chills, and weight loss, Eyes: Negative for injury, jh7 pain, redness, and discharge, Cardiovascular: Negative for chest pain, palpitations, and edema, Respiratory: Negative for shortness of breath, cough, wheezing, and pleuritic chest pain, Back: Negative for injury and pain, MS/Extremity: Negative for injury and deformity, Skin: Negative for injury, rash, and discoloration, Neuro: Negative for headache, weakness, numbness, tingling, and seizure. 13:20 Abdomen/GI: Positive for nausea, abdominal cramps, Negative for vomiting, diarrhea, constipation. 13:20 : Positive for vaginal bleeding. 13:20 All other systems are negative. Exam: 13:20 Constitutional: This is a well developed, well nourished patient who is awake, alert, jh7 and in no acute distress. Head/Face: Normocephalic, atraumatic. Cardiovascular: Regular rate and rhythm with a normal S1 and S2. No gallops, murmurs, or rubs. Normal PMI, no JVD. No pulse deficits. Respiratory: Lungs have equal breath sounds bilaterally, clear to auscultation and percussion. No rales, rhonchi or wheezes noted. No increased work of breathing, no retractions or nasal flaring. Abdomen/GI: Soft, non-tender, with normal bowel sounds. No distension or tympany. No guarding or rebound. No evidence of tenderness throughout. Back: No spinal tenderness. No costovertebral tenderness. Full range of motion. Skin: Warm, dry with normal turgor. Normal color with no rashes, no lesions, and no evidence of cellulitis. MS/ Extremity: Pulses equal, no cyanosis. Neurovascular intact. Full, normal range of motion. Neuro: Awake and alert, GCS 15, oriented to person, place, time, and situation. Motor strength 5/5 in all extremities. Sensory grossly intact. Normal gait. Vital Signs: 13:17 BP 131 / 90; Pulse 93; Resp 18; Temp 97.8; Pulse Ox 100% ; Weight 72.57 kg; Height [address] [facility] ft. 4 in. (162.56 cm); Pain 5/10; 13:17 Body Mass Index 27.46 (72.57 kg, 162.56 cm) [facility] MDM: 13:21 Patient medically screened. [facility] 16:20 Differential diagnosis: UTI, , incomplete miscarriage. Data reviewed: [facility] signs, nurses notes, lab test result(s). Counseling: I had a detailed discussion with the patient and/or guardian regarding: the historical points, exam findings, and any diagnostic results supporting the discharge/admit diagnosis, to return to the emergency department if symptoms worsen or persist or if there are any questions or concerns that arise at home. ED course: The patient later stated that she really only wanted the blood test and declined urine sample. Provided her with her results and she stated that she was ready to be discharged.. 10/10 13:24 Order name: Basic Metabolic Panel; Complete Time: 16:17 [facility] 10/10 13:24 Order name: CBC with Diff; Complete Time: 15:33 [facility] 10/10 13:24 Order name: Quantitative Hcg; Complete Time: 16:17 [facility] 10/10 13:24 Order name: IV Saline Lock; Complete Time: 15:08 [facility] 10/10 13:24 Order name: Labs collected and sent; Complete Time: 15:08 [facility] 10/10 13:24 Order name: NPO; Complete Time: 15:00 [facility] Administered Medications: No medications were administered Disposition: 10/11 07:00 Co-signature as Attending Physician, Sunny Ho MD I reviewed the patient's care rn provided by the Advanced Practice Provider and agree with the diagnosis and treatment plan. Disposition Summary: 10/10/22 16:19 Discharge Ordered Location: Home [facility] Problem: new [facility] Symptoms: are unchanged [facility] Condition: Stable [facility] Diagnosis - Encounter for test, result negative [facility] Followup: [facility] - With: Private Physician - When: 2 - 3 days - Reason: Recheck today's complaints Discharge Instructions: - Discharge Summary Sheet [facility] - Contraception Choices [facility] - Hormonal Contraception Information [facility] Forms: - Medication Reconciliation Form [facility] - Thank You Letter [facility] Signatures: Dispatcher [employer] Sunny Gimenez MD MD rn Prokisch, Amanda RN RN 3 Tabatha Owen RN RN jh5 Laura Josue, FOOD SALES CLERK FOOD SALES CLERK [facility] Corrections: (The following items were deleted from the chart) 10/10 16:19 13:24 Urine Dipstick-Ancillary [place]. [place] [id number] 16:19 13:24 Urine Test [place]. [place] [id number]
[2022-10-10 17:22] VITALS: BP 131/90; TEMP 97.8; O2SAT 100
== END 2022-10-10 16:43 | disposition home or self-care (01) ==
LOC: ER 13:02
DX: Z32.02 Encounter for pregnancy test, result negative (principal)
CPT/HCPCS: 36415; 80048; 84702; 85025; 99283